=== PATIENT | male | born 1960 | race Caucasian/White ===

== ENCOUNTER 2018-12-06 09:19 | Emergency (ER) | payer OTHER ==
--- NOTE | 2018-12-06 09:32 | EDPHY ---
H & P Stated Complaint: bleeding from penis Time Seen by Provider: 12/06/18 09:29 - Personal History Current Tetanus Diphtheria and Acellular Pertussis (TDAP): Yes - Medical/Surgical History Hx Asthma: No Hx Chronic Respiratory Disease: No Hx Diabetes: No Hx Cardiac Disease: No Hx Renal Disease: No Hx Cirrhosis: No Hx Alcoholism: No Hx HIV/AIDS: No Hx Splenectomy or Spleen Trauma: No Other PMH: hemochromocytosis htn epilepsy gout - Social History Smoking Status: Never smoked Constitutional: Initial Vital Signs Temperature (C) 36.5 C 12/06/18 09:24 Heart Rate 89 12/06/18 09:24 Respiratory Rate 18 12/06/18 09:24 Blood Pressure 150/90 H 12/06/18 09:24 O2 Sat (%) 94 12/06/18 09:24 O2 Delivery Mode Room Air Allergies/Adverse Reactions: No Known Allergies Allergy (Unverified 12/06/18 09:22) Home Medications: Medication Instructions Recorded Allopurinol 12/06/18 Atenolol 12/06/18 Finasteride [Proscar 5 MG (*)] 5 mg PO DAILY #30 tab 12/06/18 Lisinopril 12/06/18 PHENOBARBITAL 12/06/18 Zarontin 12/06/18 Medical Decision Making ED Course/Re-evaluation: CHIEF COMPLAINT: Penile bleeding HISTORY OF PRESENT ILLNESS: The patient is a 58 y/o male with a history of hypertension and urethral tear complaining of penile bleeding which he believes is secondary to another urethral tear this morning. Around 30 years ago he was told that he had a minor urethral tear and it would self-resolve. At this time there was only a minor amount of blood. Today, he was urinating when he coughed and developed immediate pain and had a "large amount of blood" coming from his urethra. He believes he tore his urethra as there was a "ripping" sensation. He was able to slow down the bleeding and went to work. While at work the bleeding started again and he was not able to stop it. No fever, headache, body aches, chest pain , heart palpitations, shortness of breath, cough, abdominal pain, bowel complaints, numbness, paresthesias. REVIEW OF SYSTEMS: A 10 point review of systems was performed and is negative with the exception of the elements mentioned in the history of present illness. PHYSICAL EXAM: HR, BP, O2 Sat, RR. Temp noted General Appearance: Alert, well hydrated, appropriate, and non-toxic appearing. Head: Atraumatic without scalp tenderness or obvious injury Eyes: Pupils equal, round, reactive to light and accommodation, EOMI, no trauma , no injection. Ears: Clear bilaterally, no perforation, normal landmarks Nose: Atraumatic, no rhinorrhea, clear. Throat: There is no erythema or exudates, no lesions, normal tonsils, mucus membranes moist. Neck: Supple, 2+ carotid upstroke, nontender, no lymphadenopathy. Respiratory: No retractions, no distress, no wheezes, and no accessory muscle use. Lungs are clear to auscultation bilaterally. Cardiovascular: Regular rate and rhythm, no murmurs, rubs, or gallops. Bilateral carotid, radial, dorsalis pedis, and posterior tibial pulses intact. Good capillary refill all extremities. Gastrointestinal: Abdomen is soft, nontender, non-distended, no masses, no rebound, no guarding, no peritoneal signs. Genitourinary: Blood at meatus, no tenderness at perineum, normal testicles and scrotum, penile portion of urethra feels normal. Musculoskeletal: Normal active ROM of all extremities, atraumatic. Neurological: Alert, appropriate, and interactive. The patient has normal DTRs and non-focal cranial nerves, motor, sensory, and cerebellar exam. Skin: No rashes, good turgor, no nodules on palpation. Past medical history: Hemochromatosis, hypertension, epilepsy gout Past surgical history: Denies Family history: Denies Social history: Lives in [place], [facility] DIAGNOSTICS/PROCEDURES/CRITICAL CARE TIME: Not indicated. DIFFERENTIAL DIAGNOSIS: The differential diagnosis for the patient's urinary bleeding included but was not limited to urethral tear, medication side effect, neurologic causes, prostatic hypertrophy, and infection. MEDICAL DECISION MAKING: The patient is a 58 y/o male with a history of hypertension and urethral tear presenting with a penile bleeding which he believes is secondary to another urethral tear this morning. Today, he was urinating when he coughed and developed immediate pain and had a "large amount of blood" coming from his urethra. He believes he tore his urethra as there was a "ripping" sensation. On exam he has blood at the meatus and the penile portion of urethra feels normal. I believe this patient needs a retrograde urethrogram. UA and additional labs ordered; 1L IV NS administered. 0942: I consulted with Dr. Patel, urologist, regarding this patient. He believes that this is a median prostate lobe problem. Dr. Patel does not believe that this patient needs a retrograde urethrogram. Patient will need Proscar and potentially Keflex depending of his UA reveals infection; 5mg PO Proscar administered. Patient will also need to follow up with Dr. Patel as an outpatient. 0956: Patient's I-Stat creatinine is elevated at 1.7 1032: I reviewed patient's UA, there is no evidence of need for antibiotics. 1037: Reassessed patient and discussed laboratory findings. I have advised him to take Proscar and follow up with a urologist. Return precautions provided; patient is comfortable with this plan. - Data Points Laboratory Results: 12/06/18 12/06/18 10:00 09:48 POC Hgb 15.6 gm/dL gm/dL (13.7-17.5) POC Hct 46 % % (40-51) POC Sodium 135 mEq/L mEq/L (135-145) POC Potassium 3.5 mEq/L mEq/L (3.3-5.0) POC Chloride 100 mEq/L mEq/L (97-110) POC Total CO2 22 mEq/L mEq/L (22-31) POC BUN 30 mg/dL H mg/dL (7-23) POC Creatinine 1.7 mg/dL H mg/dL (0.7-1.3) POC Glucose 171 mg/dL H mg/dL (70-100) Urine Color RED Urine Appearance MODERATELY TURBID Urine pH 5.0 (5.0-7.5) Ur Specific [place] 1.016 (1.002-1.030) Urine Protein 2+ H (NEGATIVE) Urine Ketones NEGATIVE (NEGATIVE) Urine Blood 3+ H (NEGATIVE) Urine Nitrate NEGATIVE (NEGATIVE) Urine Bilirubin NEGATIVE (NEGATIVE) Urine Urobilinogen NEGATIVE EU EU (0.2-1.0) Ur Leukocyte Esterase NEGATIVE (NEGATIVE) Urine RBC 50-182 /hpf H /hpf (0-3) Urine WBC 10-15 /hpf H /hpf (0-3) Ur Epithelial Cells NONE SEEN /lpf /lpf (NONE-1+) Urine Bacteria TRACE /hpf H /hpf (NONE SEEN) Urine Mucus TRACE /lpf /lpf (NONE-1+) Urine Glucose NEGATIVE (NEGATIVE) Medications Given: Finasteride (Proscar) 5 mg PO EDNOW ONE Stop: 12/07/18 09:45 Last Admin: 12/06/18 10:06 Dose: 5 mg Discontinued Medications Sodium Chloride (Ns) 1,000 mls @ 0 mls/hr IV ONCE ONE PRN Reason: Wide Open Stop: 12/06/18 10:19 Last Admin: 12/06/18 10:21 Dose: 1,000 mls Point of Care Test Results: Chemistry 12/06/18 09:48 POC Sodium 135 mEq/L mEq/L (135-145) POC Potassium 3.5 mEq/L mEq/L (3.3-5.0) POC Chloride 100 mEq/L mEq/L (97-110) POC Total CO2 22 mEq/L mEq/L (22-31) POC BUN 30 mg/dL H mg/dL (7-23) POC Creatinine 1.7 mg/dL H mg/dL (0.7-1.3) POC Glucose 171 mg/dL H mg/dL (70-100) ISTAT H&H 12/06/18 09:48 POC Hgb 15.6 gm/dL gm/dL (13.7-17.5) POC Hct 46 % % (40-51) Departure - Departure Disposition: Home, Routine, Self-Care Clinical Impression: Hematuria Qualifiers: Hematuria type: unspecified type Qualified Code(s): R31.9 - Hematuria, unspecified Condition: Good Instructions: Hematuria (ED) Additional Instructions: 1. Take Proscar as prescribed. 2. Follow up with a urologist in the next week. Please call Dr. Patel's office on Sunday to schedule an appointment. 3. Return to the Emergency Department for fever, worsening pain, flank pain or failure to improve within 72 hours. Referrals: Magnus Patel MD [Medical Doctor] - As per Instructions Prescriptions: Finasteride [Proscar 5 MG (*)] 5 mg PO DAILY #30 tab Report Scribed for: Eugene Christopher Report Scribed by: Mariama Harrell Date of Report: 12/06/18 Time of Report: 09:55
[2018-12-06] MEDS ORDERED: NS 1,000 ML IV ONE (10:18)
[2018-12-06 12:22] VITALS: BP 136/74
[2018-12-07] MEDS ORDERED: FINASTERIDE 5 MG TAB PO ONE (09:44)
== END 2018-12-06 12:00 | disposition home or self-care (01) ==
DX: R31.9 Hematuria, unspecified (principal); E86.9 Volume depletion, unspecified; I10 Essential (primary) hypertension
CPT/HCPCS: 82435-PO; 82565-PO; 82947-PO; 84132-PO; 84295-PO; 84520-PO; 85014-ER